=== PATIENT | female | born 1955 | race Two or more races ===

== ENCOUNTER 2018-03-02 09:36 | Outpatient (CLI) | payer OTHER | END 2018-03-02 09:38 | disposition home or self-care (01) | LOC: SONOGRAMA 09:36 | DX: E04.1 Nontoxic single thyroid nodule (principal) ==

== ENCOUNTER 2021-04-18 08:00 | Outpatient (CLI) | payer OTHER | END 2021-04-18 08:30 | disposition home or self-care (01) | LOC: PPH VACUNA 08:00 | PROVIDERS: ATTEND Emergency Medicine Pediatric Emergency Medicine | DX: Z23 Encounter for immunization (principal) ==

== ENCOUNTER 2022-10-02 12:30 | Outpatient (CLI) | payer OTHER | END 2022-10-02 12:38 | disposition home or self-care (01) | LOC: RAD 12:30 | PROVIDERS: ATTEND Family Medicine | DX: M17.12 Unilateral primary osteoarthritis, left knee (principal); M54.16 Radiculopathy, lumbar region; M81.0 Age-related osteoporosis without current pathological fracture ==